=== PATIENT | male | born 1995 | race Caucasian/White ===

== ENCOUNTER 2018-01-05 20:48 | Observation (INO) | payer MEDICAID ==
[2018-01-05 21:58] LABS: ABSOLUTE EOSINOPHILS # (AUTO) 0.3 10^3/uL (0.0-0.6); ABSOLUTE LYMPHOCYTES (AUTO) 1.8 10^3/uL (0.5-4.7); ABSOLUTE MONOCYTES (AUTO) 0.8 10^3/uL (0.1-1.4); BASOPHILS % (AUTO) 0.3 % (0-2); EOSINOPHILS % (AUTO) 3.4 % (0-6); HEMATOCRIT 42.4 % (37.9-51.0); HEMOGLOBIN 15.1 g/dL (13.5-17.0); LYMPHOCYTES % (AUTO) 20.4 % (13-45); MEAN CORPUSCULAR HEMOGLOBIN 31.7 pg (27.0-33.4); MEAN CORPUSCULAR HGB CONC 35.7 g/dL (32.0-36.0); MEAN CORPUSCULAR VOLUME 89 fl (80-97); MONOCYTES % (AUTO) 8.7 % (3-13); PLATELET COUNT 193 10^3/uL (150-450); RED BLOOD COUNT 4.77 10^6/uL (4.35-5.55); RED CELL DISTRIBUTION WIDTH 12.9 % (11.5-14.0); SEGMENTED NEUTROPHILS % (AUTO) 67.2 % (42-78); TOTAL CELLS COUNTED % (AUTO) 100 %
[2018-01-05 22:04] LABS: APPEARANCE,URINE CLOUDY; BILIRUBIN,URINE NEGATIVE (NEGATIVE); COLOR,URINE AMBER; GLUCOSE, URINE NEGATIVE (NEGATIVE); KETONES,URINE NEGATIVE (NEGATIVE); LEUKOCYTE ESTERASE,URINE NEGATIVE (NEGATIVE); NITRITE,URINE NEGATIVE (NEGATIVE); PROTEIN,URINE NEGATIVE (NEGATIVE); URINE SPECIFIC GRAVITY 1.028
[2018-01-05 22:20] LABS: ALANINE AMINOTRANSFERASE 74 U/L (21-72); ALBUMIN 4.4 g/dL (3.5-5.0); ALKALINE PHOSPHATASE 78 U/L (38-126); ANION GAP 9 (5-19); ASPARTATE AMINO TRANSFERASE 51 U/L (17-59); BILIRUBIN,DIRECT 0.3 mg/dL (0.0-0.4); BILIRUBIN,TOTAL 0.9 mg/dL (0.2-1.3); BLOOD UREA NITROGEN 10 mg/dL (7-20); CALCIUM 9.7 mg/dL (8.4-10.2); CARBON DIOXIDE 29 mmol/L (22-30); CHLORIDE 104 mmol/L (98-107); GLUCOSE 103 mg/dL (75-110); LIPASE 33.2 U/L (23-300); POTASSIUM 3.9 mmol/L (3.6-5.0); SODIUM 141.6 mmol/L (137-145); TOTAL PROTEIN 7.1 g/dL (6.3-8.2)
--- NOTE | 2018-01-05 23:02 | ER Document Report ---
ED General - General Chief Complaint: Lower Abdominal Pain Stated Complaint: LOWER ABDOMIN PAIN Time Seen by Provider: 01/05/18 21:05 Notes: Patient is a 22-year-old male without chronic medical problems who presents with 36 hours of a dull, throbbing, constant, gradually intensifying pain lower abdomen. Patient reports the pain is mostly to the suprapubic and right lower quadrants. Nothing improves the pain, touching the area worsens the pain. No history of similar symptoms in the past. He states that he has been nauseated, had subjective fever, but has not had a recorded fever. No vomiting or diarrhea. He has not seen his general doctor regarding today's concerns. He denies any abdominal surgical history. TRAVEL OUTSIDE OF THE [place] IN LAST 30 DAYS: No - Related Data Allergies/Adverse Reactions: No Known Allergies Allergy (Unverified 01/05/18 20:50) Past Medical History - General Information source: Patient - Social History Smoking Status: Current Every Day Smoker Frequency of alcohol use: None Drug Abuse: None Lives with: Spouse/Significant other Family History: Reviewed & Not Pertinent Patient has suicidal ideation: No Patient has homicidal ideation: No Renal/ Medical History: Denies: Hx Peritoneal Dialysis Review of Systems - Review of Systems Notes: Constitutional: Negative for fever. HENT: Negative for sore throat. Eyes: Negative for visual changes. Cardiovascular: Negative for chest pain. Respiratory: Negative for shortness of breath. Gastrointestinal: Positive for abdominal pain and nausea Genitourinary: Negative for dysuria. Musculoskeletal: Negative for back pain. Skin: Negative for rash. Neurological: Negative for headaches, weakness or numbness. 10 point ROS negative except as marked above and in HPI. Physical Exam - Vital signs Vitals: Temp Pulse Resp BP Pulse Ox 99.4 F 94 16 127/75 H 97 01/05/18 20:57 01/05/18 20:57 01/05/18 20:57 01/05/18 20:57 01/05/18 20:57 Interpretation: Normal Notes: PHYSICAL EXAMINATION: GENERAL: Well-appearing, well-nourished and in no acute distress. HEAD: Atraumatic, normocephalic. EYES: Pupils equal round and reactive to light, extraocular movements intact, sclera anicteric, conjunctiva are normal. ENT: nares patent, oropharynx clear without exudates. Moderately dry mucous membranes. NECK: Normal range of motion, supple without lymphadenopathy LUNGS: Breath sounds clear to auscultation bilaterally and equal. No wheezes rales or rhonchi. HEART: Regular rate and rhythm without murmurs ABDOMEN: Soft, focal tenderness to the right lower and suprapubic quadrants without guarding. Some rebound tenderness is present although mild. Bowel sounds present. No masses appreciated. : Positive cremasteric reflex bilaterally. No testicular tenderness to palpation. Normal testicular lie. EXTREMITIES: Normal range of motion, no pitting or edema. No cyanosis. NEUROLOGICAL: No focal neurological deficits. Moves all extremities spontaneously and on command. PSYCH: Normal mood, normal affect. SKIN: Warm, Dry, normal turgor, no rashes or lesions noted. Course - Re-evaluation Re-evalutation: 01/05/18 23:01 Patient presents with right lower quadrant abdominal pain that has been been ongoing and worsening over the past 36 hours. He does have some mild tenderness to the right lower quadrant, rebound tenderness but no guarding. Testicular exam unremarkable. Labs unremarkable without evidence of cystitis. Primary concern would be for possible acute appendicitis. CT the abdomen pelvis pending. 01/06/18 00:45 CT of the abdomen pelvis does show findings consistent with a possible Meckel's diverticulitis, appendix is normal. Discussed directly with the radiologist. I discussed with the surgeon promotions producer Dr. Godoy who has requested the patient remain n.p.o., on IV fluids, withhold antibiotics at this point. He will admit the patient to the surgical floor. - Vital Signs Vital signs: Temp Pulse Resp BP Pulse Ox 99.4 F 94 16 127/75 H 97 01/05/18 20:57 01/05/18 20:57 01/05/18 20:57 01/05/18 20:57 01/05/18 20:57 - Laboratory Result Diagrams: 01/05/18 21:47 01/05/18 21:47 Laboratory results interpreted by me: 01/05/18 01/05/18 21:47 21:47 ALT 74 H Urine Urobilinogen 4.0 H - Diagnostic Test Radiology reviewed: Reports reviewed Discharge - Discharge Clinical Impression: Meckel's diverticulitis, Right lower quadrant abdominal pain Condition: Fair Disposition: ADMITTED OBSERVATION Admitting Provider: Surgicalist Unit Admitted: Surgical Floor
--- NOTE | 2018-01-06 00:31 | RADIOLOGY REPORT (SQ) ---
EXAM DESCRIPTION: CT ABDOMEN PELVIS WITH IV CONTRAST COMPLETED DATE/TME: 01/05/2018 23:01 CLINICAL HISTORY: Right lower quadrant abdominal pain. COMPARISON: None Available. TECHNIQUE: CT of the abdomen and pelvis performed following IV administration of 93 mL of Omnipaque 350. DLP: 1090.70 mGycm FINDINGS: Lung Bases: The visualized lung bases are clear. Bones: No destructive bone lesions identified. Abdomen: Liver: The liver has normal size and density. No intrahepatic mass or biliary dilatation. Gallbladder: No calcified gallstones. Spleen, Pancreas, and Adrenal Glands: The spleen, pancreas, and adrenal glands are unremarkable. Kidneys: The kidneys have normal size and contour without evidence of solid mass or hydronephrosis. Vasculature: The aorta and IVC have normal caliber and position. The portal vein is patent. The proximal visceral and renal arteries are patent. Stomach: The stomach and duodenum have normal course. Other: No free intraperitoneal air. No free fluid or lymphadenopathy. Pelvis: Bladder: Urinary bladder is unremarkable. Bowel: No dilated loops of large or small bowel. There is a blind-ending thick-walled structure arising at the antimesenteric border of a loop of small bowel in the pelvis. There is adjacent fat stranding. Appendix: Normal appendix. Pelvis: The prostate is not enlarged. IMPRESSION: 1. Blind-ending thick-walled structure arising in the antimesenteric border of a loop of small bowel in the pelvis with adjacent inflammatory change. These findings could be seen with diverticulitis of a small bowel diverticulum. In this location, Meckel's diverticulitis should be considered. Urgent finding reported to Dr. Floyd at 01/05/2018 11:42 PM CDT This exam was performed according to our departmental dose-optimization program, which includes automated exposure control, adjustment of the mA and/or kV according to patient size and/or use of iterative reconstruction technique.
[2018-01-06] MEDS ORDERED: NORMAL SALINE 1000 ML 1,000 ML IV ONE (00:46)
--- NOTE | 2018-01-06 06:31 | PDOC H&P ---
History of Present Illness Admission Date/PCP: 01/06/18 01:12 Patient complains of: Abdominal pain History of Present Illness: NOMAN SHETH is a 22 year old male Presents to the emergency department complaining of a 12-18-hour history of abdominal pain suprapubic, no nausea vomiting diarrhea constipation. No history of trauma no previous episodes. Patient was seen in the emergency department by Dr. ruffin where he was found to have abdominal pain right lower quadrant and suprapubic area. His white blood cell count was normal. He had a CT scan of the abdomen and pelvis without oral contrast which suggested Meckel' s diverticulitis. Surgery was consulted and the patient was advised admission. This is at approximately 1:00 in the morning. Overnight the patient states he feels better. He did have several bowel movements since hospitalization. He has no abdominal pain this morning. Past Medical History Medical History: None Past Surgical History Past Surgical History: [place] teeth removed Past Surgical History: Reports: None Social History Lives with: Spouse/Significant other Smoking Status: Current Every Day Smoker Cigarettes Packs Per Day: 5 Number of Years Smokin Frequency of Alcohol Use: Occasional Hx Recreational Drug Use: No Family History Family History: Reviewed & Not Pertinent Parental Family History Reviewed: Yes Children Family History Reviewed: Yes Sibling(s) Family History Reviewed.: Yes Medication/Allergy Allergies/Adverse Reactions: No Known Allergies Allergy (Unverified 01/05/18 20:50) Review of Systems Constitutional: PRESENT: as per HPI Eyes: ABSENT: visual disturbances Ears: ABSENT: hearing changes Cardiovascular: ABSENT: chest pain, dyspnea on exertion, edema, orthropnea, palpitations Respiratory: ABSENT: cough, hemoptysis Gastrointestinal: PRESENT: as per HPI. ABSENT: abdominal pain, constipation, diarrhea, hematemesis, hematochezia, nausea, vomiting Musculoskeletal: ABSENT: joint swelling Integumentary: ABSENT: rash, wounds Neurological: ABSENT: abnormal gait, abnormal speech, confusion, dizziness, focal weakness, syncope Psychiatric: ABSENT: anxiety, depression, homidical ideation, suicidal ideation Physical Exam Vital Signs: Temp Pulse Resp BP Pulse Ox 99.1 F 84 18 121/73 98 01/06/18 02:25 01/06/18 02:25 01/06/18 02:25 01/06/18 02:25 01/06/18 02:25 Intake & Output 01/04/18 01/05/18 01/06/18 06:59 06:59 06:59 Weight 85.3 kg General appearance: PRESENT: no acute distress Head exam: PRESENT: normocephalic Eye exam: PRESENT: EOMI Mouth exam: PRESENT: dry mucosa Neck exam: PRESENT: full ROM Respiratory exam: PRESENT: clear to auscultation curtis Cardiovascular exam: PRESENT: RRR GI/Abdominal exam: PRESENT: other - Completely benign abdomen. No peritoneal signs no rigidity no guarding no inguinal hernias. Musculoskeletal exam: PRESENT: full ROM Neurological exam: PRESENT: oriented to person, oriented to place, oriented to time, oriented to situation Psychiatric exam: PRESENT: appropriate affect Results Impressions: Abdomen/Pelvis CT 01/05/18 23:01 IMPRESSION: 1. Blind-ending thick-walled structure arising in the antimesenteric border of a loop of small bowel in the pelvis with adjacent inflammatory change. These findings could be seen with diverticulitis of a small bowel diverticulum. In this location, Meckel's diverticulitis should be considered. Urgent finding reported to Dr. Ruffin at 01/05/2018 11:42 PM CDT This exam was performed according to our departmental dose-optimization program, which includes automated exposure control, adjustment of the mA and/or kV according to patient size and/or use of iterative reconstruction technique. Assessment & Plan - Diagnosis (1) Right lower quadrant abdominal pain Plan: Impression: Abdominal pain, resolved; workup consisted of a CT scan without oral contrast which was interpreted by the radiologist as possible Meckel's diverticulitis. The CT scan was reviewed by Dr. Gdooy, recognizing its limitations due to absence of oral contrast. Patient is currently asymptomatic , after having several bowel movements. There was a significant amount of stool in the colon based on CT scan findings. Recommendations: 1. The patient is completely asymptomatic, without fever without leukocytosis. I suggested starting him on a diet and following clinically. We anticipate discharge from the floor later today. - Time Time Spent: 30 to 50 Minutes Critical Time spent with patient: Less than 15 minutes Medications reviewed and adjusted accordingly: Yes Anticipated discharge: Home - Inpatient Certification Based on my medical assessment, after consideration of the patient's comorbidities, presenting symptoms, or acuity I expect that the services needed warrant INPATIENT care.: Yes I certify that my determination is in accordance with my understanding of Medicare's requirements for reasonable and necessary INPATIENT services [42 CFR 412.3e].: Yes Medical Necessity: Need For IV Fluids
[2018-01-06 08:09] LABS: ABSOLUTE EOSINOPHILS # (AUTO) 0.4 10^3/uL (0.0-0.6); ABSOLUTE LYMPHOCYTES (AUTO) 1.8 10^3/uL (0.5-4.7); ABSOLUTE MONOCYTES (AUTO) 0.6 10^3/uL (0.1-1.4); ABSOLUTE NEUT (AUTO) 2.8 10^3/uL (1.7-8.2); BASOPHILS % (AUTO) 0.5 % (0-2); EOSINOPHILS % (AUTO) 6.8 % (0-6); HEMATOCRIT 40.7 % (37.9-51.0); HEMOGLOBIN 14.3 g/dL (13.5-17.0); LYMPHOCYTES % (AUTO) 32.3 % (13-45); MEAN CORPUSCULAR HEMOGLOBIN 31.5 pg (27.0-33.4); MEAN CORPUSCULAR HGB CONC 35.1 g/dL (32.0-36.0); MEAN CORPUSCULAR VOLUME 90 fl (80-97); PLATELET COUNT 181 10^3/uL (150-450); RED BLOOD COUNT 4.54 10^6/uL (4.35-5.55); RED CELL DISTRIBUTION WIDTH 13.2 % (11.5-14.0); SEGMENTED NEUTROPHILS % (AUTO) 50.4 % (42-78); TOTAL CELLS COUNTED % (AUTO) 100 %; WHITE BLOOD COUNT 5.6 10^3/uL (4.0-10.5)
--- NOTE | 2018-01-06 11:55 | PDOC PROGRESS REPORT ---
Subjective Progress Note for:: 01/06/18 Subjective:: Feels well. No abdominal complaints. Reason For Visit: MECKEL'S DIVERTICULITIS,RIGHT LOWER QUADRANT ABDOM Physical Exam Vital Signs: Temp Pulse Resp BP Pulse Ox 98.6 F 61 20 124/75 98 01/06/18 05:00 01/06/18 05:00 01/06/18 05:00 01/06/18 05:00 01/06/18 05:00 Intake & Output 01/05/18 01/06/18 01/07/18 06:59 06:59 06:59 Intake Total 1000 Balance 1000 Weight 85.3 kg General appearance: PRESENT: no acute distress, cooperative Respiratory exam: PRESENT: clear to auscultation curtis Cardiovascular exam: PRESENT: RRR GI/Abdominal exam: PRESENT: other - Soft, nondistended, nontender to palpation. No tenderness to deep palpation in the lower abdomen. No palpable masses. Results Laboratory Results: 01/06/18 07:57 01/06/18 07:57 WBC 5.6 RBC 4.54 Hgb 14.3 Hct 40.7 MCV 90 MCH 31.5 MCHC 35.1 RDW 13.2 Plt Count 181 Seg Neutrophils % 50.4 Lymphocytes % 32.3 Monocytes % 10.0 Eosinophils % 6.8 H Basophils % 0.5 Absolute Neutrophils 2.8 Absolute Lymphocytes 1.8 Absolute Monocytes 0.6 Absolute Eosinophils 0.4 Absolute Basophils 0.0 Impressions: Abdomen/Pelvis CT 01/05/18 23:01 IMPRESSION: 1. Blind-ending thick-walled structure arising in the antimesenteric border of a loop of small bowel in the pelvis with adjacent inflammatory change. These findings could be seen with diverticulitis of a small bowel diverticulum. In this location, Meckel's diverticulitis should be considered. Urgent finding reported to Dr. Floyd at 01/05/2018 11:42 PM CDT This exam was performed according to our departmental dose-optimization program, which includes automated exposure control, adjustment of the mA and/or kV according to patient size and/or use of iterative reconstruction technique. Assessment & Plan - Diagnosis (1) Right lower quadrant abdominal pain Is this a current diagnosis for this admission?: Yes Plan: Abdominal complaints have completely resolved. He has no tenderness on exam. He has no leukocytosis. I have reviewed the CT scan with our radiologist this morning. She does not see the "Meckel's diverticulitis"as noted by nighttime radiologist. Since the patient is completely asymptomatic with a normal exam today, will plan to discharge patient home. He has already eaten some chick- filet this morning. Will have him follow-up with Dr. Godoy in a couple weeks. He is to call immediately for any recurrent symptoms. Will defer to Dr. Godoy about possible further workup but suspect that he had a self- limiting disease process and not Meckel's diverticulitis.
--- NOTE | 2018-01-06 12:11 | DISCHARGE SUMMARY E ---
Discharge Summary NAME: NOMAN SHETH : 1995 AGE: 22Y ADMITTED: 01/06/2018 DISCHARGED: 01/06/2018 DISCHARGE DIAGNOSIS: Abdominal pain, resolved. HOSPITAL COURSE: Patient was admitted for observation. He was noted with complete resolution of the abdominal symptoms with no tenderness on exam. His CT scan was reviewed with the radiologist in the morning and we did not see any significant abnormalities. With complete resolution of his abdominal pain, the radiology diagnosis of possible Meckel diverticulitis is suspect. I offered the patient repeat CT with oral contrast versus a Meckel scan versus discharge home with followup. I had recommended to the patient the last option since he was completely asymptomatic. The patient and the patient's family was fine with this recommendation. He is now being discharged to home in good condition. He will call us immediately for any recurrent symptoms. He may follow a regular diet at home. Of note, the patient was tolerating a diet well at the time of discharge. He will follow up with Dr. Godoy in a couple weeks. We will defer to Dr. Godoy about any further workup if he needs any at that point, but I suspect that he had a self-limiting disease process. DICTATING PHYSICIAN: HENNY SAEED M.D. [id number] PHY#: [id number] ID: [id number] JOB#: [id number] ACCT: [id number] cc:Jonah PINEDA MD, M.D. [facility], >
[2018-01-06 14:05] VITALS: BP 124/75
== END 2018-01-06 14:17 | disposition home or self-care (01) ==
LOC: ER 20:48 → EH 01-06 01:12 → 4N 01-06 04:45
PROVIDERS: ATTEND Surgery
DX: R10.31 Right lower quadrant pain (principal); R11.0 Nausea; F17.210 Nicotine dependence, cigarettes, uncomplicated
CPT/HCPCS: 99285; 36415 ×2; 83690; 85025 ×2; 80053; 81001; 74177; G0378; J7030